=== PATIENT | female | born 1990 | race Caucasian/White ===

== ENCOUNTER 2024-07-13 19:15 | Emergency (ER) | payer MEDICAID ==
[~2024-07-13 19:15] MED LIST: ALBU8HFA IH; HYDR-2561 PO
[2024-07-13 21:13] VITALS: BP 120/68; PULSE 80; RESP 16; TEMP 97.7; O2SAT 99
== END 2024-07-13 21:14 | disposition home or self-care (01) ==
LOC: ER 19:16
DX: S80.11XA Contusion of right lower leg, initial encounter (principal); Z91.040 Latex allergy status; Z88.5 Allergy status to narcotic agent; Z79.899 Other long term (current) drug therapy; W19.XXXA Unspecified fall, initial encounter; Y93.89 Activity, other specified; Y92.89 Other specified places as the place of occurrence of the external cause; Y99.8 Other external cause status
CPT/HCPCS: 73552; 73590; 99284

== ENCOUNTER 2024-09-12 15:36 | Emergency (ER) | payer MEDICAID ==
[~2024-09-12] VITALS: Ht 162.6 cm; Wt 81.8 kg
[2024-09-12] MEDS ORDERED: HYDR-3965 PO (16:50)
[2024-09-12 16:56] VITALS: BP 163/65; PULSE 99; RESP 16; TEMP 98; O2SAT 98
== END 2024-09-12 16:57 | disposition home or self-care (01) ==
LOC: ER 15:37
DX: S93.601A Unspecified sprain of right foot, initial encounter (principal); Z88.5 Allergy status to narcotic agent; Z91.040 Latex allergy status; X50.1XXA Overexertion from prolonged static or awkward postures, initial encounter; Y93.84 Activity, sleeping; Y92.89 Other specified places as the place of occurrence of the external cause; Y99.8 Other external cause status
CPT/HCPCS: 73630; 99284

== ENCOUNTER 2025-04-12 18:22 | Emergency (ER) | payer MEDICAID ==
[~2025-04-12] VITALS: Ht 162.6 cm; Wt 92.5 kg
[2025-04-12 18:42] VITALS: BP 146/84; PULSE 97; RESP 16; TEMP 98; O2SAT 98
== END 2025-04-12 23:18 | disposition left against medical advice (07) ==
LOC: ER 18:22
DX: M79.644 Pain in right finger(s) (principal); Z91.040 Latex allergy status; Z88.5 Allergy status to narcotic agent; Z53.21 Procedure and treatment not carried out due to patient leaving prior to being seen by health care provider